=== PATIENT | female | born 1930 | race Caucasian/White ===

== ENCOUNTER 2020-06-04 17:15 | Inpatient (IN) | payer OTHER ==
[~2020-06-04] VITALS: Ht 160 cm; Wt 98.0 kg
[~2020-06-04 17:15] MED LIST: GLIPIZIDE-METFO1 TA5 PO; NORFLEX100 MG PO; OMEPRAZOLE20 MG; RELAFEN500 MG PO; SYNTHROID50 MCG PO
--- NOTE | 2020-06-04 17:45 | NUR ---
PTE EN COMPANIA DE FAMILIAR A QUIEN SE LE ORIENTA SOBRE TX MEDICO EL CUAL REFIERE ENTENDER.SE LE EXTRAEN MUESTRAS BAJO MEDIDAS ASEPTICAS,SE CANALIZA PTE Y SE NOTIFICA CT,SE REALIZA EKG.
[2020-06-04] MEDS ORDERED: LOSARTAN (17:49)
--- NOTE | 2020-06-04 17:50 | NUR ---
PTE SE RECIBE POR DISORIENTED REFIERE PARAMEDICO Y FAMILIAR.
--- NOTE | 2020-06-04 19:04 | NUR ---
SE COLOCAN RESTRICCIONES YA QUE PTE SE ENCVUENTRA DESORIENTADA Y COMBATIVA,SE COLOCAN RESTRICCIONES SUPERIORES,SE MANTIENE EN OBSERVACION POR CAMBIOS.
--- NOTE | 2020-06-04 22:06 | NUR ---
NO SE ADMINISTRAN MEDICAMENTOS PO,PTE DESORIENTADA,COMBATIVA Y POCO COOPERADORA.
--- NOTE | 2020-06-04 23:16 | NUR ---
MS.PINEDA NOTIFICA A MS.GARCIA ESTUDIO (MRI) DE LA PTE. MS.GARCIA NOTIFICA A MS.CORY Y LA MISMA INDICA QUE NINGUN TECNOLOGO CONTESTO EL TELEFONO Y QUE EL ESTUDIO SE REALIZARA EN LA MANANA.
--- NOTE | 2020-06-04 23:25 | NUR ---
SE RECIBE PTE ALERTA Y DESORIENTADA X 3 ESFERAS EN CAMA CON BARANDAS ELEVADAS POR SEGURIDAD Y EN COMPANIA DE FAMILIAR. RESTRINGIDA EN EXTREMIDADES SUPERIORES SE OBSERVAN AREAS LIBRES DE EDEMA Y ERITEMA. RECIBIENDO IV'S 0.9NSS BAJANDO A 50ML/HR AREA IDALIA DE EDEMA Y ERITEMA. PENDIENTE MRI PARA MANANA EN LA MANANA. SE EBONI A PTE EN CAMA CON BARANDAS ELEVADAS POR SEGURIDAD EN COMPANIA DE FAMILIAR Y SE MANTIENE EN OBSERVACION POR CAMBIOS EN CONDICION MEDICA.
--- NOTE | 2020-06-05 07:12 | NUR ---
SE RECIBE PACIENTE ALERTA Y DESORIENTADA CON BARANDAS ELEVADAS, Y FRENOS AJUSTADOS POR SEGURIDAD. PTE EN COMPANIA DE FAMILIAR. AREA DE VENOPUNCION PATENTE IDALIA DE ERITEMA Y EDEMA, RECIBIENDO TERAPIA DE IVF'S 0.9% NSS 1000ML A 50ML/HR. PACIENTE RESTRINGIDA EN EXTREMIDADES SUPERIORES, SE OBSERVAN AREAS LIBRES DE EDEMA Y ERITEMA. BUEN PATRON RESPIRATORIO Y PIEL TIBIA AL TACTO, PTE CALMADA AL MOMENTO. PENDIENTE CONSULTA CON DR. ANETA LUNA Y MRI. SE MANTIENE EN OBSERVACION POR CAMBIOS EN BENSON CONDICION.
[2020-06-08] MEDS ORDERED: AMLODIPINE BESYL5 MG PO (12:34)
[2020-06-08] MEDS ORDERED: CLOPIDOGREL BIS75 MG PO (12:34)
[2020-06-08] MEDS ORDERED: RISPERDAL0.5 MG PO (12:35)
[2020-06-08] MEDS ORDERED: LEVOTHYROXINE50 MCG PO (12:35)
[2020-06-08] MEDS ORDERED: DOCUSATE SODIU100 MG PO (12:35)
[2020-06-08] MEDS ORDERED: TOPROL XL25 MG PO (12:36)
[2020-06-08] MEDS ORDERED: GLIPIZIDE5 MG PO (12:41)
[2020-06-08] MEDS ORDERED: GLIPIZIDE XL5 MG PO (12:43)
[2020-06-08] MEDS ORDERED: COZAAR50 MG PO (12:44)
== END 2020-06-08 13:22 | disposition home or self-care (01) | DRG 282 ==
LOC: ER 17:15 → SEC-K 06-05 12:48 → MEDI 06-05 15:09
PROVIDERS: ADMIT Internal Medicine; ATTEND Internal Medicine
PROC: 4A033R1 Measurement of Arterial Saturation, Peripheral, Percutaneous Approach (ICD-10-PCS; principal; 2020-06-04)
PROC: B020ZZZ Computerized Tomography (CT Scan) of Brain (ICD-10-PCS; 2020-06-04)
PROC: 4A12X4Z Monitoring of Cardiac Electrical Activity, External Approach (ICD-10-PCS; 2020-06-05)
PROC: B348ZZZ Ultrasonography of Bilateral Internal Carotid Arteries (ICD-10-PCS; 2020-06-05)
PROC: BW28ZZZ Computerized Tomography (CT Scan) of Head (ICD-10-PCS; 2020-06-05)
PROC: B246ZZZ Ultrasonography of Right and Left Heart (ICD-10-PCS; 2020-06-05)
DX: I21.4 Non-ST elevation (NSTEMI) myocardial infarction (principal); I65.23 Occlusion and stenosis of bilateral carotid arteries; I11.9 Hypertensive heart disease without heart failure; I69.818 Other symptoms and signs involving cognitive functions following other cerebrovascular disease; I35.0 Nonrheumatic aortic (valve) stenosis; E03.8 Other specified hypothyroidism; E11.65 Type 2 diabetes mellitus with hyperglycemia; R41.82 Altered mental status, unspecified; Z20.828 Contact with and (suspected) exposure to other viral communicable diseases
CPT/HCPCS: 70551

== ENCOUNTER 2021-09-14 19:38 | Emergency (ER) | payer OTHER ==
[~2021-09-14] VITALS: Ht 160 cm; Wt 45.4 kg
[~2021-09-14 19:38] MED LIST changes: +AMLODIPINE BESYL5 MG PO; +CLOPIDOGREL BIS75 MG PO; +COZAAR50 MG PO; +DOCUSATE SODIU100 MG PO; +GLIPIZIDE XL5 MG PO; +GLIPIZIDE5 MG PO; +LEVOTHYROXINE50 MCG PO; +LOSARTAN; +RISPERDAL0.5 MG PO; +TOPROL XL25 MG PO
[2021-09-15] MEDS ORDERED: ZOFRAN4 MG PO (01:25)
[2021-09-15] MEDS ORDERED: LEVSIN/SL0.125 MG SL (01:25)
[2021-09-15] MEDS ORDERED: INTESTINEX680 M1 PO (01:25)
== END 2021-09-15 01:48 ==
LOC: ER 19:38
DX: E03.9 Hypothyroidism, unspecified (principal); E11.9 Type 2 diabetes mellitus without complications; Z79.84 Long term (current) use of oral hypoglycemic drugs